=== PATIENT | male | born 1965 | race Caucasian/White ===

== ENCOUNTER 2021-05-25 08:12 | Outpatient (REF) | payer OTHER, SELFPAY ==
[2021-05-25 19:23] LABS: HCT 45.7 % (40.0-50.0); HGB 15.3 g/dL (13.5-17.5); MCH 29.8 pg (27.0-33.0); MCHC 33.5 % (32.0-36.0); MCV 89.1 fL (80-95); Platelet Count 136 10^3/uL (130-400); RBC 5.13 10^6/uL (4.36-5.78); RDW 12.4 % (11.8-14.1); RDW-SD 40.7 fL; WBC 4.69 10^3/uL (4.4-10.8)
[2021-05-25 19:50] LABS: Total Iron Binding Capacity 249 ug/dL (250-450)
[2021-05-25 20:16] LABS: ALT 36 U/L (16-63); AST 34 U/L (15-37); Alkaline Phosphatase 113 U/L (46-116); Anion Gap 9.7 mmol/L (3-11); BUN 29 mg/dL (7-18); Bilirubin, Total 0.7 mg/dL (0.2-1.0); CO2 28.3 mmol/L (21.0-32.0); CREATININE 1.1 mg/dL (0.70-1.30); Calcium 8.7 mg/dL (8.5-10.1); Calculated LDL 151 mg/dL (<100); Chloride 104 mmol/L (98-107); Cholesterol 239 mg/dL (<200); Ferritin 145 ng/mL (26-388); Glucose 104 mg/dL (74-106); HDL Cholesterol 72 mg/dL (40-60); Potassium 4.5 mmol/L (3.5-5.1); Sodium 142 mmol/L (136-145); Total Protein 7.1 g/dL (6.4-8.2); Triglyceride 82 mg/dL (<150)
[2021-05-26 17:44] LABS: PSA, Screening 0.4 ng/mL (0.0-3.5)
== END 2021-05-25 08:13 | disposition home or self-care (01) ==
LOC: NCHCN 08:12
PROVIDERS: PCP Physician Assistant; Visit Provider Physician Assistant
DX: K22.70 Barrett's esophagus without dysplasia (principal); A69.20 Lyme disease, unspecified; Z12.5 Encounter for screening for malignant neoplasm of prostate; Z13.220 Encounter for screening for lipoid disorders
CPT/HCPCS: 80053; 80061; 84153; 85027; 82728; 83550

== ENCOUNTER 2022-05-27 09:37 | Outpatient (REF) | payer OTHER, SELFPAY ==
[2022-05-27 15:23] LABS: HCT 48.3 % (40.0-50.0); HGB 16.2 g/dL (13.5-17.5); MCH 29.8 pg (27.0-33.0); MCHC 33.5 % (32.0-36.0); MCV 89 fL (80-95); Platelet Count 128 10^3/uL (130-400); RBC 5.43 10^6/uL (4.36-5.78); RDW 12.3 % (11.8-14.1); RDW-SD 40.4 fL; WBC 4.94 10^3/uL (4.4-10.8)
[2022-05-27 16:24] LABS: BUN 21 mg/dL (7-18); Calcium 9.1 mg/dL (8.5-10.1); Calculated LDL 166 mg/dL (<100); Chloride 102 mmol/L (98-107); Cholesterol 271 mg/dL (<200); Estimated GFR 87.24 (mL/min/1.73m2); Glucose 97 mg/dL (74-106); HDL Cholesterol 75 mg/dL (40-60); Potassium 4.6 mmol/L (3.5-5.1); Sodium 140 mmol/L (136-145); Triglyceride 151 mg/dL (<150)
[2022-05-27 23:44] LABS: PSA, Screening 0.4 ng/mL (<=3.5)
== END 2022-05-27 09:38 | disposition home or self-care (01) ==
LOC: NCHCN 09:37
PROVIDERS: PCP Physician Assistant; Visit Provider Physician Assistant
DX: E78.5 Hyperlipidemia, unspecified (principal); K22.70 Barrett's esophagus without dysplasia; N40.0 Benign prostatic hyperplasia without lower urinary tract symptoms; Z12.5 Encounter for screening for malignant neoplasm of prostate
CPT/HCPCS: 80048; 80061; 84153; 85027

== ENCOUNTER 2022-11-16 13:02 | Outpatient (REF) | payer OTHER, SELFPAY ==
[2022-11-16 15:34] LABS: HCT 44.1 % (40.0-50.0); HGB 15.3 g/dL (13.5-17.5); MCH 30.2 pg (27.0-33.0); MCHC 34.7 % (32.0-36.0); MCV 87 fL (80-95); MPV 10.5 fL (8.0-11.0); Platelet Count 109 10^3/uL (130-400); RBC 5.07 10^6/uL (4.36-5.78); RDW 12.2 % (11.8-14.1); WBC 4.36 10^3/uL (4.4-10.8)
[2022-11-16 16:07] LABS: ALT 33 U/L (16-63); AST 35 U/L (15-37); Alkaline Phosphatase 111 U/L (46-116); Anion Gap 7.3 mmol/L (3-11); BUN 22 mg/dL (7-18); CO2 29.7 mmol/L (21.0-32.0); CREATININE 1.1 mg/dL (0.70-1.30); Calculated LDL 140 mg/dL (<100); Chloride 104 mmol/L (98-107); Cholesterol 232 mg/dL (<200); Estimated GFR 77.33 (mL/min/1.73m2); Glucose 92 mg/dL (74-106); HDL Cholesterol 85 mg/dL (40-60); Potassium 4.4 mmol/L (3.5-5.1); Sodium 141 mmol/L (136-145); Total Protein 7.4 g/dL (6.4-8.2); Triglyceride 39 mg/dL (<150)
== END 2022-11-16 13:03 | disposition home or self-care (01) ==
LOC: NCHCN 13:02
PROVIDERS: PCP Physician Assistant; Visit Provider Physician Assistant
DX: E78.5 Hyperlipidemia, unspecified (principal)
CPT/HCPCS: 80053; 80061; 85027

== ENCOUNTER 2024-01-02 14:40 | Outpatient (REF) | payer OTHER, SELFPAY ==
[2024-01-02 15:57] LABS: HCT 44.7 % (40.0-50.0); HGB 15.5 g/dL (13.5-17.5); MCH 30.6 pg (27.0-33.0); MCHC 34.7 % (32.0-36.0); MCV 88 fL (80-95); Platelet Count 109 10^3/uL (130-400); RBC 5.07 10^6/uL (4.36-5.78); RDW 12.4 % (11.8-14.1); RDW-SD 40.1 fL; WBC 4.93 10^3/uL (4.4-10.8)
[2024-01-02 17:25] LABS: ALT 31 U/L (16-63); AST 24 U/L (15-37); Alkaline Phosphatase 110 U/L (46-116); Anion Gap 5.8 mmol/L (3-11); BUN 20 mg/dL (7-18); Bilirubin, Total 0.99 mg/dL (0.2-1.0); CO2 31.2 mmol/L (21.0-32.0); CREATININE 1.1 mg/dL (0.70-1.30); Calcium 9.1 mg/dL (8.5-10.1); Calculated LDL 131 mg/dL (<100); Chloride 104 mmol/L (98-107); Cholesterol 225 mg/dL (<200); Estimated GFR 76.85 (mL/min/1.73m2); Glucose 105 mg/dL (74-106); HDL Cholesterol 73 mg/dL (40-60); Potassium 4.7 mmol/L (3.5-5.1); Sodium 141 mmol/L (136-145); TSH 2.36 uIU/Ml (0.36-3.74); Total Protein 7.1 g/dL (6.4-8.2); Triglyceride 109 mg/dL (<150)
[2024-01-02 18:30] LABS: FREE T4 0.87 ng/dL (0.76-1.46)
[2024-01-02 23:45] LABS: PSA, Screening 0.3 ng/mL (<=4.5)
[2024-01-07 15:55] LABS: Testosterone, Total 542 ng/dL (240-950)
== END 2024-01-02 14:41 | disposition home or self-care (01) ==
LOC: NCHCN 14:40
PROVIDERS: PCP Physician Assistant; Visit Provider Physician Assistant
DX: K22.70 Barrett's esophagus without dysplasia (principal); R53.83 Other fatigue; E78.5 Hyperlipidemia, unspecified; N40.0 Benign prostatic hyperplasia without lower urinary tract symptoms; Z12.5 Encounter for screening for malignant neoplasm of prostate
CPT/HCPCS: 80053; 80061; 84153; 84403; 85027; 84439; 84443

== ENCOUNTER 2025-01-23 14:02 | Outpatient (REF) | payer OTHER, SELFPAY ==
[2025-01-23 17:10] LABS: HCT 45.9 % (40.0-50.0); HGB 15.9 g/dL (13.5-17.5); MCH 30.5 pg (27.0-33.0); MCHC 34.6 % (32.0-36.0); MCV 88 fL (80-95); MPV 11.1 fL (8.0-11.0); Platelet Count 111 10^3/uL (130-400); RBC 5.21 10^6/uL (4.36-5.78); RDW 12.4 % (11.8-14.1); RDW-SD 40.3 fL; WBC 5.10 10^3/uL (4.4-10.8)
[2025-01-23 17:46] LABS: ALT 37 U/L (16-63); AST 27 U/L (15-37); Albumin 4.2 g/dL (3.4-5.0); Alkaline Phosphatase 101 U/L (46-116); Anion Gap 9.0 mmol/L (3-11); BUN 24 mg/dL (7-18); Bilirubin, Total 0.8 mg/dL (0.2-1.0); CO2 30.0 mmol/L (21.0-32.0); Calcium 8.9 mg/dL (8.5-10.1); Calculated LDL 143 mg/dL (<100); Chloride 101 mmol/L (98-107); Cholesterol 240 mg/dL (<200); Estimated GFR 85.63 (mL/min/1.73m2); Glucose 98 mg/dL (74-106); HDL Cholesterol 76 mg/dL (>or=40); Potassium 4.7 mmol/L (3.5-5.1); Sodium 140 mmol/L (136-145); Total Protein 7.4 g/dL (6.4-8.2); Triglyceride 106 mg/dL (<150)
== END 2025-01-23 14:03 | disposition home or self-care (01) ==
LOC: NCHCN 14:02
PROVIDERS: PCP Physician Assistant; Visit Provider Physician Assistant
DX: K21.9 Gastro-esophageal reflux disease without esophagitis (principal); E78.5 Hyperlipidemia, unspecified; N40.0 Benign prostatic hyperplasia without lower urinary tract symptoms
CPT/HCPCS: 80053; 80061; 85027; 84154